=== PATIENT | male | born 1985 | race Caucasian/White ===

== ENCOUNTER 2016-12-27 12:01 | Emergency (ER) | payer SELFPAY ==
[2016-12-27 12:38] VITALS: BP 126/68; PULSE 84; RESP 20; TEMP 98
[2016-12-27] MEDS ORDERED: AMOXICILLIN 875 MG TAB PO STA (13:19)
[2016-12-27] MEDS ORDERED: IBUPROFEN 400 MG TAB PO STA (13:20)
--- NOTE | 2016-12-27 13:22 | ED ---
ENT HPI - General Chief complaint: ENT Stated complaint: Ear Pain Time Seen by Provider: 12/27/16 12:43 Source: patient Mode of arrival: ambulatory Limitations: no limitations - History of Present Illness Initial comments: This patient is a 31-year-old man who presents to be evaluated for left ear pain. Patient states that things started about 4 days ago, when he thought he had some sort of viral illness. He states that he was having a cough, congestion, left ear pain, and he had a couple of episodes of loose bowel movements. He states that the other symptoms have much improved. The left ear pain remains. He states it feels like an aching or pressure. It is constant, moderate intensity. He did try putting some olive oil in his left ear yesterday , but this did not really seem to change things. Patient denies loss of hearing or discharge. No fever. MD complaint: ear pain Onset/Timin -: days(s) Severity: moderate Quality: aching Consistency: constant Improves with: none Worsens with: none Associated Symptoms: cough - Related Data Home Medications Medication Instructions Recorded Confirmed Citalopram Hydrobromide [CeleXA] 10 mg PO DAILY 07/08/14 12/27/16 Atorvastatin Calcium [Lipitor] 10 mg PO HS 12/21/15 12/27/16 Ibuprofen [Motrin] 800 mg PO TID PRN 12/27/16 12/27/16 Magnesium Hydroxide [Milk of 2,400 mg PO DAILY PRN 12/27/16 12/27/16 Magnesia] diphenhydrAMINE HCL [Benadryl] 25 mg PO Q6H PRN 12/27/16 12/27/16 Previous Rx's Medication Instructions Recorded Amoxicillin 875 mg PO Q12HR #14 tablet 12/27/16 Ibuprofen [Motrin] 800 mg PO Q8HR PRN #20 tab 12/27/16 Allergies Allergy/AdvReac Type Severity Reaction Status Date / Time azithromycin Allergy Rash/Hives Verified 12/27/16 12:38 [From Zithromax Z-Aric] Sulfa (Sulfonamide Allergy Rash/Hives Verified 12/27/16 12:38 Antibiotics) Review of Systems ROS Statement: Those systems with pertinent positive or pertinent negative responses have been documented in the HPI. ROS Other: All systems not noted in ROS Statement are negative. Constitutional: Denies: fever, chills Eyes: Denies: eye discharge ENT: Reports: ear pain, congestion. Denies: throat pain Respiratory: Reports: cough. Denies: dyspnea, wheezes Cardiovascular: Denies: chest pain Gastrointestinal: Reports: diarrhea. Denies: abdominal pain, vomiting Genitourinary: Denies: dysuria Musculoskeletal: Denies: back pain Skin: Denies: rash Neurological: Denies: headache Past Medical History Past Medical History: No Reported History Additional Past Medical History / Comment(s): depression History of Any Multi-Drug Resistant Organisms: None Reported Past Surgical History: Orthopedic Surgery Additional Past Surgical History / Comment(s): femur Past Psychological History: Depression Smoking Status: Current every day smoker Past Alcohol Use History: None Reported Past Drug Use History: None Reported General Exam Limitations: no limitations General appearance: alert, in no apparent distress Head exam: Present: atraumatic, normocephalic, normal inspection Eye exam: Present: normal appearance. Absent: scleral icterus, conjunctival injection ENT exam: Present: normal oropharynx, other (The right ear inspection is normal. The left ear shows that there is injection of the tympanic membrane and an effusion. No evident rupture. No external auditory canal inflammation. No tenderness of the tragus.) Neck exam: Present: normal inspection, full ROM, lymphadenopathy. Absent: tenderness, meningismus Respiratory exam: Present: normal lung sounds bilaterally. Absent: respiratory distress, wheezes, rales, rhonchi, stridor Skin exam: Present: warm, dry, intact, normal color. Absent: rash Course Vital Signs 12/27/16 12:35 Temperature 98 F Pulse Rate 84 Respiratory 20 Rate Blood Pressure 126/68 O2 Sat by Pulse 98 Oximetry Disposition Clinical Impression: Otitis media Disposition: HOME SELF-CARE Condition: Fair Instructions: Otitis Media (ED) Prescriptions: Amoxicillin 875 mg PO Q12HR #14 tablet Ibuprofen [Motrin] 800 mg PO Q8HR PRN #20 tab PRN Reason: Pain Referrals: Kenyon Simon MD [Primary Care Provider] - 1-2 days
[2016-12-27] MEDS ORDERED: AMOXIC-POT CLAV 875-125MG 1 EACH TAB PO STA (13:47)
== END 2016-12-27 13:50 | disposition home or self-care (01) ==
LOC: EC 12:01
DX: H66.92 Otitis media, unspecified, left ear (principal); F32.9 Major depressive disorder, single episode, unspecified; F17.200 Nicotine dependence, unspecified, uncomplicated; Z88.1 Allergy status to other antibiotic agents; Z88.2 Allergy status to sulfonamides; Z79.899 Other long term (current) drug therapy
CPT/HCPCS: 99283

== ENCOUNTER 2019-07-22 07:14 | Emergency (ER) | payer OTHER ==
[2019-07-22 07:32] VITALS: BP 120/74; PULSE 73; RESP 18; TEMP 97.8
--- NOTE | 2019-07-22 08:00 | ED ---
Back Pain HPI - General Chief Complaint: Back Pain/Injury Stated Complaint: back pain Time Seen by Provider: 07/22/19 07:33 Source: patient, RN notes reviewed Mode of arrival: ambulatory Limitations: no limitations - History of Present Illness Initial Comments: 34 year old male presents emergency Department chief complaint of low back pain. 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 States that he was jumping down into a basement and states that he let go last few feet. Patient states he landed awkwardly. He complains of low back pain. Patient denies any bowel bladder incontinence or retention. Denies any abdominal complaints denies any paresthesias of his lower extremity or saddle anesthesias. Patient states that this is painful with movement. - Related Data Home Medications Medication Instructions Recorded Confirmed Citalopram Hydrobromide [CeleXA] 20 mg PO HS 07/22/19 07/22/19 Previous Rx's Medication Instructions Recorded Cyclobenzaprine [Flexeril] 10 mg PO TID PRN #15 tab 07/22/19 Ibuprofen [Motrin] 600 mg PO Q8HR PRN #30 tab 07/22/19 Allergies Allergy/AdvReac Type Severity Reaction Status Date / Time azithromycin Allergy Rash/Hives Verified 07/22/19 08:18 [From Zithromax Z-Aric] Sulfa (Sulfonamide Allergy Rash/Hives Verified 07/22/19 08:18 Antibiotics) Review of Systems ROS Statement: Those systems with pertinent positive or pertinent negative responses have been documented in the HPI. ROS Other: All systems not noted in ROS Statement are negative. Past Medical History Past Medical History: No Reported History Additional Past Medical History / Comment(s): depression History of Any Multi-Drug Resistant Organisms: None Reported Past Surgical History: Orthopedic Surgery Additional Past Surgical History / Comment(s): femur Past Psychological History: Depression Smoking Status: Current every day smoker Past Alcohol Use History: None Reported Past Drug Use History: None Reported General Exam Limitations: no limitations General appearance: alert, in no apparent distress Head exam: Present: atraumatic, normocephalic, normal inspection Eye exam: Present: normal appearance, PERRL, EOMI. Absent: scleral icterus, conjunctival injection, periorbital swelling ENT exam: Present: normal exam, normal oropharynx, mucous membranes moist Neck exam: Present: normal inspection, full ROM. Absent: tenderness, meningi smus, lymphadenopathy Respiratory exam: Present: normal lung sounds bilaterally. Absent: respiratory distress, wheezes, rales, rhonchi, stridor Cardiovascular Exam: Present: regular rate, normal rhythm, normal heart sounds. Absent: systolic murmur, diastolic murmur, rubs, gallop, clicks Extremities exam: Present: normal inspection, full ROM, normal capillary refill. Absent: tenderness, pedal edema, joint swelling, calf tenderness Back exam: Present: full ROM, tenderness, paraspinal tenderness, vertebral tenderness (lumbar). Absent: CVA tenderness (R), CVA tenderness (L) Neurological exam: Present: alert, oriented X3, CN II-XII intact Skin exam: Present: warm, dry, intact, normal color. Absent: rash Course Vital Signs 07/22/19 07:29 Temperature 97.8 F Pulse Rate 73 Respiratory 18 Rate Blood Pressure 120/74 O2 Sat by Pulse 97 Oximetry Medical Decision Making - Medical Decision Making 34 show male presented for low back pain after a fall. X-rays showed possible partial effect CT was obtained which shows chronic bilateral pars defect. Patient will be discharged with pain medication and is neurologically intact and will follow-up with orthopedics. Disposition Clinical Impression: Lumbar back pain Disposition: HOME SELF-CARE Condition: Stable Instructions (If sedation given, give patient instructions): Acute Low Back Pain (ED) Additional Instructions: Please return to the Emergency Department if symptoms worsen or any other concerns. Prescriptions: Cyclobenzaprine [Flexeril] 10 mg PO TID PRN #15 tab PRN Reason: Muscle Spasm Ibuprofen [Motrin] 600 mg PO Q8HR PRN #30 tab PRN Reason: Pain Is patient prescribed a controlled substance at d/c from ED?: No Referrals: Kenyon Simon MD [Primary Care Provider] - 1-2 days Noel Sales DO [Doctor of Osteopathic Medicine] - 1-2 days Time of Disposition: 09:10
--- NOTE | 2019-07-22 08:09 | XR ---
EXAMINATION TYPE: XR lumbosacral spine min 4V DATE OF EXAM: 07/22/2019 COMPARISON: NONE HISTORY: 34 year-old male lower back pain TECHNIQUE: 5 views FINDINGS: 5 lumbar type vertebral bodies. Findings suspicious for a right-sided pars interarticularis defect at L5. Disc interspaces and vertebral body heights are maintained. Mild facet arthropathy lower lumbar spine. IMPRESSION: Findings suspicious for a right-sided pars defect at L5. No vertebral compression collapse or malalig nment.
[2019-07-22] MEDS ORDERED: ORPHENADRINE 30 MG/ML 2 ML VIAL IM STA (08:20)
[2019-07-22] MEDS ORDERED: KETOROLAC 60 MG/2 ML VIAL IM STA (08:20)
--- NOTE | 2019-07-22 08:48 | CT ---
EXAMINATION TYPE: CT lumbar spine wo con DATE OF EXAM: 07/22/2019 COMPARISON: Radiograph same day HISTORY: 34-year-old male Back pain TECHNIQUE: Contiguous axial scanning of the lumbar spine without IV contrast. Coronal and sagittal re constructions performed. CT DLP: 1075 mGycm Automated exposure control for dose reduction was used. FINDINGS: No prevertebral or paravertebral soft tissue abnormality seen. Visualized SI joints and sacrum appear intact. Vertebral body heights are preserved and alignment is maintained. Disc interspaces are relatively bipin ntained as well. There may be very mild disc bulging at L5-S1. Mild facet arthropathy lower lumbar spine. Bilateral L5 pars interarticularis defects are present. These are chronic appearing defect with corti cated margins. No significant bony neural foraminal narrowing. IMPRESSION: 1. BILATERAL L5 PARS INTERARTICULARIS DEFECTS. 2. NO SPONDYLOLISTHESIS AT THIS TIME. 3. MILD FACET ARTHROPATHY LOWER LUMBAR SPINE.
[2019-07-22] MEDS ORDERED: ACET/COD 300 MG/30 MG STARTER PACK 6 TAB BTL PO STA (09:10)
== END 2019-07-22 09:25 | disposition home or self-care (01) ==
LOC: EC 07:14
DX: M43.06 Spondylolysis, lumbar region (principal); F32.9 Major depressive disorder, single episode, unspecified; F17.200 Nicotine dependence, unspecified, uncomplicated; Z79.899 Other long term (current) drug therapy; Z88.1 Allergy status to other antibiotic agents; Z88.2 Allergy status to sulfonamides
CPT/HCPCS: 72110; 72131; 99284; 96372 ×2; J2360; J1885

== ENCOUNTER → 2023-10-22 | Outpatient (CLI) | payer BC | END | disposition home or self-care (01) | LOC: LABWHC1 16:06 | PROVIDERS: ATTEND Orthopaedic Surgery | DX: M17.12 Unilateral primary osteoarthritis, left knee (principal); M25.532 Pain in left wrist; M85.842 Other specified disorders of bone density and structure, left hand; M67.432 Ganglion, left wrist | CPT/HCPCS: 36415; 80323 ==

== ENCOUNTER → 2023-12-10 | Outpatient (CLI) | payer BC ==
[2023-12-12 07:03] LABS: Cotinine 220.5 ng/mL (<2.0); Nicotine 11.7 ng/mL (<2.0)
== END | disposition home or self-care (01) ==
LOC: LABWHC1 10:06
PROVIDERS: ATTEND Orthopaedic Surgery
DX: M85.842 Other specified disorders of bone density and structure, left hand (principal); M19.032 Primary osteoarthritis, left wrist; M67.432 Ganglion, left wrist; M17.0 Bilateral primary osteoarthritis of knee
CPT/HCPCS: 36415; 80323

== ENCOUNTER → 2023-12-21 | Outpatient (CLI) | payer BC ==
[2023-12-24 07:05] LABS: Cotinine 271.5 ng/mL (<2.0); Nicotine 20.7 ng/mL (<2.0)
== END | disposition home or self-care (01) ==
LOC: LABWHC1 11:51
PROVIDERS: ATTEND Orthopaedic Surgery
DX: M25.562 Pain in left knee (principal); M25.561 Pain in right knee; M25.532 Pain in left wrist; M85.842 Other specified disorders of bone density and structure, left hand; M67.432 Ganglion, left wrist; M17.0 Bilateral primary osteoarthritis of knee
CPT/HCPCS: 36415; 80323